=== PATIENT | male | born 1990 | race Caucasian/White ===

== ENCOUNTER 2017-01-16 22:10 | Emergency (ER) | payer OTHER ==
--- NOTE | 2017-01-16 22:53 | ED Physician Documentation ---
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- active duty Review of Systems Constitutional: reports: Reviewed and negative Cardiac: reports: Reviewed and negative Respiratory: reports: Reviewed and negative PD PAST MEDICAL HISTORY - Past Medical History Past Medical History: No - Past Surgical History Past Surgical History: No - Present Medications Home Medications: Ambulatory Orders Medication Instructions Recorded Confirmed No Known Home Medications [No 01/16/17 01/16/17 Known Home Medications] - Allergies Allergies/Adverse Reactions: Allergies Allergy/AdvReac Type Severity Reaction Status Date / Time No Known Drug Allergies Allergy Verified 01/16/17 22:25 - Social History Does the pt smoke?: No Smoking Status: Never smoker Does the pt drink ETOH?: Yes ETOH Use: Beer, Liquor Does the pt have substance abuse?: No - Immunizations Immunizations are current?: Yes - POLST Patient has POLST: No PD ED PE NORMAL - Vitals Vital signs reviewed: Yes - General General: Alert and oriented X 3, No acute distress - Extremities Extremities: Other (2cm lac anterior just above L ankle, intact motor function in foot. Good pulses/sensation.) - Neuro Neuro: Alert and oriented X 3, Normal speech - Psych Psych: Normal mood, Normal affect Results - Vitals Vitals: Vital Signs - 24 hr 01/16/17 22:25 Temperature 36.5 C Heart Rate 88 Respiratory 16 Rate Blood Pressure 129/85 H O2 Saturation 98 Oxygen O2 Source Room air Procedures - Laceration (location) L ankle Length in cm: 2 Wound type: Linear Neurovascular status: Sensory intact, Motor intact, Vascular intact Anesthesia: Marcaine 0.5% with epi Wound Preparation: Hibiclens, Irrigated copiously NS Skin layer closure: Nylon, Interrupted, Size #-0 - enter number (4-0), Sutures - enter # (7) Other: Tetanus UTD Complexity: Simple Departure - Departure Disposition: 01 Home, Self Care Clinical Impression: Laceration of left ankle Qualifiers: Encounter type: initial encounter Qualified Code(s): S91.012A - Laceration without foreign body, left ankle, initial encounter Condition: Good Record reviewed to determine appropriate education?: Yes Instructions: ED Laceration All Comments: Wash the wound briefly but in general keep it dry and covered. Come back for any signs of infection which would include: Redness, swelling, drainage, increased pain, or fevers. Followup with your doctor in14 days for suture removal. Your blood pressure was elevated today on check in to the emergency department. This does not mean that you have hypertension, it is a common phenomenon to check into the emergency department and have elevated blood pressure. I recommend that you see your primary care physician within the week to have it rechecked when you're feeling better. Forms: Activity restrictions
[2017-01-16 23:08] VITALS: BP 121/75
== END 2017-01-16 23:10 | disposition home or self-care (01) ==
LOC: ED 22:10
DX: S81.812A Laceration without foreign body, left lower leg, initial encounter (principal); W27.0XXA Contact with workbench tool, initial encounter; Y92.017 Garden or yard in single-family (private) house as the place of occurrence of the external cause; R03.0 Elevated blood-pressure reading, without diagnosis of hypertension
CPT/HCPCS: 12001; 99282; 99283

== ENCOUNTER 2017-03-13 12:48 | Outpatient (CLI) | payer OTHER ==
--- NOTE | 2017-03-13 14:36 | MRI Report ---
EXAM: LEFT ANKLE/HINDFOOT MRI WITHOUT CONTRAST EXAM DATE: 03/13/2017 02:13 PM. CLINICAL HISTORY: Anterior left ankle pain after hitting the ankle with a hatchet accidentally. Shakira rn for ligament or tendon injury. Decreased range of motion. COMPARISON: None. TECHNIQUE: Multiplanar, multisequence T1-weighted and fluid-sensitive sequences of the ankle/hindfoot without contrast. Other: None. FINDINGS: Bones: Minimal marrow edema at the navicular. No acute fracture or bone lesions. Articular Cartilage: Unremarkable. Ligaments: The anterior and posterior tibiofibular, anterior and posterior talofibular, and calcaneof ibular ligaments are intact. The deep and superficial deltoid and spring ligaments are intact. Anterior Tendons: There is moderate to high-grade partial tear within the tibialis anterior tendon. T he length of the tear is approximately 5 cm and extends from approximately 5 cm above the tibiotalar joint line to the tibiotalar joint line level. The extensor hallucis and extensor digitorum tendons a re intact. Medial Tendons: The tibialis posterior, flexor digitorum longus, and flexor hallucis longus tendons a re unremarkable. Lateral Tendons: The peroneus brevis and longus are unremarkable. Achilles Tendon: The Achilles tendon is unremarkable. Musculature: No edema or fatty atrophy. Other: No effusions. The contents of the sinus tarsi and tarsal tunnel are unremarkable. No plantar f asciitis. The subcutaneous tissues are unremarkable. IMPRESSION: 1. A moderate high-grade partial tear within the tibialis anterior tendon from approximately 5 cm abo ve the tibiotalar joint line to the tibiotalar joint line level. 2. Minimal marrow edema within the navicular which may represent bone contusion or stress reaction. 3. No ligament injury. [facility] MUSCULOSKELETAL RADIOLOGY SECTION Referring Provider Line: [phone] SITE ID: [id number]
== END 2017-03-13 12:49 | disposition home or self-care (01) ==
LOC: DI 12:48
PROVIDERS: ATTEND Registered Nurse Diabetes Educator
DX: S96.812A Strain of other specified muscles and tendons at ankle and foot level, left foot, initial encounter (principal)

== ENCOUNTER 2017-04-26 07:02 | Day surgery (SDC) | payer OTHER ==
[~2017-04-26 07:02] MED LIST: ACETAMINOPHEN 1,000 MG/100 ML 100 ML IV ONE; ceFAZolin 2 GM/50 ML 50 ML IV ONE
[2017-04-26] MEDS ORDERED: LACTATED RINGERS 1,000 ML IV ONE ×2 (07:33→13:29)
[2017-04-26] MEDS ORDERED: BUPIVACAINE 0.25% PF 30 ML VIAL SUBQ ONE ×2 (09:16)
[2017-04-26] MEDS ORDERED: ONDANSETRON 4 MG/2 ML VIAL IVP ONE (10:18)
[2017-04-26] MEDS ORDERED: PROPOFOL 200 MG/20 ML VIAL IVP ONE (10:18)
[2017-04-26] MEDS ORDERED: LIDOCAINE-MPF 2% 5 ML VIAL IM ONE (10:18)
[2017-04-26] MEDS ORDERED: KETOROLAC 30 MG/ML VIAL IVP ONE (10:18)
[2017-04-26] MEDS ORDERED: HYDROmorphone 1 MG/ML SYRINGE IVP ONE (10:18)
[2017-04-26] MEDS ORDERED: DEXAMETHASONE 4 MG/ML VIAL IVP ONE (10:18)
[2017-04-26] MEDS ORDERED: MIDAZOLAM 2 MG/2 ML VIAL IVP ONE (10:18)
[2017-04-26] MEDS ORDERED: fentaNYL 100 MCG/2 ML VIAL ONE (14:36)
--- NOTE | 2017-04-26 14:49 | XRAY Report ---
THREE-VIEW LEFT FOOT: 04/26/2017 CLINICAL INDICATION: Tendon repair. FINDINGS: Intraoperative AP, lateral, oblique views of the left foot were obtained. There is no sidney dence of acute fracture. A surgical instrument is seen directed at the medial cuneiform. IMPRESSION: INTRAOPERATIVE IMAGING OF THE LEFT FOOT. FLUOROSCOPY TIME: [address] Dooley; 5 spot images obtained. JOB #: [id number] EXT JOB #:[id number]
[2017-04-26] MEDS: oxyCODONE 5 MG TABLET ONE ×2 (15:13→15:45)
--- NOTE | 2017-04-26 15:14 | XRAY Report ---
THREE-VIEW LEFT FOOT: 04/26/2017 CLINICAL INDICATION: Postop. FINDINGS: Frontal, lateral, oblique views of the left foot demonstrate postoperative changes in the medial cuneiform, with a surgical retention button inferiorly. Cast material obscures fine osseous d etail. IMPRESSION: POSTOPERATIVE CHANGES IN THE MEDIAL FOOT. JOB #: [id number] EXT JOB #:[id number]
[2017-04-26] MEDS ORDERED: oxyCODONE 5 MG TABLET ONE (15:44)
[2017-04-26 16:40] VITALS: BP 142/84
--- NOTE | 2017-04-30 11:41 | OPERATIVE REPORT ---
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 OPERATION PERFORMED: Left tibialis anterior reconstruction with tibialis anterior allograft. PRIMARY SURGEON: Yue Dooley MD RESIDENTIAL SUPERVISOR SURGEON: Robbin Norris MD ANESTHESIA PROVIDER: Naila Plunkett MD CIRCULATING NURSE: José Orta RN STATION CAPTAIN 1. Jessica Cohn, LOSS PREVENTION OPERATIONS MANAGER 2. Marion Aldridge LOSS PREVENTION OPERATIONS MANAGER 3. Rae Garland RN, BSN ANESTHESIA: General via LMA. INTRAVENOUS FLUIDS: 1,000 mL lactated ringers. ANTIBIOTICS: Ancef 2 grams IV. ESTIMATED BLOOD LOSS: 25 mg. TOURNIQUET: To left thigh at 250 mmHg for 128 minutes. SPECIMENS 1. Culture swabs for aerobic culture. 2. Culture swabs for anaerobic culture. 3. Tissue for acid-fast bacteria. 4. Tissue for fungal culture. IMPLANTS 1. Arthrex EndoButton. 2. Arthrex 6.25 x 15 mm tenodesis screw. COMPLICATIONS: None. INDICATIONS FOR SURGERY: This is a 26-year-old male who in December of 2016 was utilizing a hatchet remove tree roots at his home, when the hatchet bounced off a root and struck him in the left anterior distal leg. He was seen in the emergency room, where the wound was sutured shut. He had persistent weakness in his tibialis anterior with inability to dorsiflex his foot after the injury, for which he had an MRI obtained by his primary care physician that showed a tibialis anterior tendon laceration with approximately 5 cm of retraction. The risks, benefits, indications, and expectations for surgery were discussed with the patient, to include, but not limited to risk of infection, bleeding, damage to neurovascular structures, wound complications, need for additional surgery, persistent or worsened pain, recurrent tendon tears or tendon rupture, decreased range of motion or stiffness, deep vein thrombosis, pulmonary embolism , loss of limb, and loss of life. All questions were answered, the patient elected to proceed with surgery, and informed consent was obtained. PROCEDURE: The patient was met in the preoperative hold area on the morning of surgery, where we confirmed that we had the correct patient, planned to do the correct procedure, and had the correct extremity which was the left lower extremity identified. Prior to the patient receiving any medications, the operative extremity was initialed by the surgeon. The patient was then brought back to the operating room in stable condition and placed supine on the operating room table. All bony prominences were well-padded, and sequential compression device was placed on the nonoperative leg. General anesthesia was induced without complication, and an LMA was placed. The left lower extremity was then prepped and draped in the usual sterile fashion. We held a surgical time-out, where we confirmed that we had the correct patient, planned to do the correct procedure, and had the correct extremity which was the left lower extremity identified. We also confirmed the patient received preoperative antibiotics, that all necessary gear was in the room and confirmed sterile, and that no members of the operative team had any concerns. We began by exsanguinating the left lower extremity and inflating the tourniquet to 250 mmHg. We then took the patient's traumatic horizontal laceration and reopened this, and then extended the medial portion of this distally to over the medial cuneiform, and then extended the lateral portion proximally over the tibialis anterior. After sharply incising the skin, we utilized cautery to obtain hemostasis through the subcuticular layer. We then identified the remnants of the tendon sheath over the tibialis anterior tendon and opened this as well as the extensor retinaculum both superior and inferior. We identified the area of the tendon, right at the level of the laceration, which appeared to be all scar tissue. The tibialis anterior distal to this also had a significant amount of scar tissue and degeneration in it; therefore, we sharply debrided this portion of the tendon out. Looking at the proximal stump, it was clear that there was additional abnormal fibrofatty tissue and not normal tendon. We continued to debride this back to healthy tendon, with a total of 8 cm of tendon debrided. There was still approximately 2 -3 cm distally attached to the medial cuneiform; however, with a large gap, the decision was made to interpose tibialis anterior allograft. The tibialis anterior allograft was weaved into the proximal aspect of the residual tendon utilizing a Pulvertaft weave, which was then sewn into place utilizing #2 Ethibond. Additionally, the very end of the graft had FiberLoop utilized on it, and then this FiberLoop, with a free needle, had the ends of it passed through the penobscot tendon and then tied as well. Distally a guide pin was placed into the medial cuneiform from dorsal to plantar. We then drilled over this utilizing a 6.5 mm drill for 2 cm after measuring the tendon to be 6mm diameter. We then whipstitched the distal end of the tibialis anterior graft after appropriate sizing it lengthwise. We then placed an button onto the distal aspect of the tibialis anterior allograft FiberWire, and then passed the button to the plantar surface of the medial cuneiform, and then toggled back and forth to draw the tendon down into the previously drilled hole. After this was appropriately snug, and the tibialis anterior tendon was appropriately tensioned with the foot in neutral dorsiflexion, we then passed the FiberWire suture through the tendon distally and then tied this. We obtained intraoperative fluoroscopy to confirm appropriate placement of the button. We then placed one limb of the suture through the 6.25 x 15 mm tenodesis screw and then placed the tenodesis screw into the predrilled hole in the medial cuneiform. We then tied the FiberWire suture over the top of this. We then took 2 cm of the penobscot distal tibialis anterior that still remained attached to the bone and did a [id number] tenodesis of that to the allograft. We then thoroughly irrigated the wound. We closed the superior retinaculum as well as the tibialis anterior tendon sheath over the graft. The distal extensor retinaculum was repaired to the degree that it could be; however, much of this was not of good quality and did not approximate over the graft. The tourniquet was deflated and hemostasis obtained. We then thoroughly irrigated the wound again. We then closed the skin with subcuticular 2-0 Vicryl and the skin with 3-0 nylon in a horizontal mattress fashion. We then injected 30 mL of 0.25% Marcaine without epinephrine about the incision for local analgesia. We then dressed the wounds with sterile Xeroform, plain gauze, and Webril. We then placed the patient into a bulky Solorzano splint with his foot in neutral dorsiflexion. The patient was awakened from general anesthesia without complication and taken to the PACU in stable condition. All sponge counts and needle counts were correct at the conclusion of the case. POSTOPERATIVE PLAN: The patient will remain in his splint for 2 weeks. I will see him back in 2 weeks, at which time sutures will be removed, and he will transition to a cast for a total of 6 weeks of immobilization. Report edited and signed 05/01/2017 by Yue Dooley MD. JOB #: [id number] EXT JOB #:[id number] MTDD
--- NOTE | 2017-05-01 09:51 | XRAY Report ---
Fluoroscopy time only, no images submitted for interpretation. Fluoroscopy time 0 minutes, 7 seconds. MTDD
== END 2017-04-26 07:03 | disposition home or self-care (01) ==
LOC: SDS 07:02
PROVIDERS: ATTEND Orthopaedic Surgery
PROC: 0LQP0ZZ Repair Left Lower Leg Tendon, Open Approach (ICD-10-PCS; principal; 2017-04-26 08:30)
DX: S86.222A Laceration of muscle(s) and tendon(s) of anterior muscle group at lower leg level, left leg, initial encounter (principal)
CPT/HCPCS: 27659; 73630; 87205; A9270; C1713; C1762; J0131; J0690; J1170; J7120

== ENCOUNTER 2018-01-29 08:41 | Outpatient (CLI) | payer OTHER ==
[~2018-01-29 08:41] MED LIST changes: -ACETAMINOPHEN 1,000 MG/100 ML 100 ML IV ONE; +GADOBUTROL 15 MMOL/15 ML VIAL ONE; -ceFAZolin 2 GM/50 ML 50 ML IV ONE
[2018-01-29] MEDS ORDERED: GADOBUTROL 15 MMOL/15 ML VIAL IVP ONE (09:50)
--- NOTE | 2018-01-29 15:13 | MRI Report ---
EXAM: RIGHT FEMUR/THIGH MRI WITHOUT AND WITH CONTRAST EXAM DATE: 01/29/2018 10:07 AM. CLINICAL HISTORY: Pain in right knee. COMPARISON: None. TECHNIQUE: Multiplanar, multisequence T1-weighted and fluid-sensitive sequences of the thigh before a nd after administration of intravenous contrast. IV contrast: 12 mL Gadavist. Other: None. FINDINGS: Bones: No fractures or subluxations. No marrow edema or abnormal enhancement. No bone lesions. Joint Spaces: Minimal knee joint effusion without enhancement. Evaluation of the internal structures of the knee limited due to large field of view sequences. No gross meniscal, cruciate, or collateral ligament abnormality visualized. Tendons: Quadriceps tendon normal in morphology and signal intensity. Musculature: No edema, enhancement, or fatty atrophy. Other: The visualized sciatic and femoral nerves are unremarkable. The subcutaneous tissues are unrem arkable. No abscess or cellulitis. IMPRESSION: 1. Normal MRI appearance of the quadriceps tendon. 2. Minimal knee joint effusion, nonspecific. 3. No focal muscle or subcutaneous soft tissue abnormality. RADIA MUSCULOSKELETAL RADIOLOGY SECTION Referring Provider Line: [phone] SITE ID: [id number]
== END 2018-01-29 08:42 | disposition home or self-care (01) ==
LOC: DI 08:41
PROVIDERS: ATTEND Orthopaedic Surgery
DX: M25.461 Effusion, right knee (principal)
CPT/HCPCS: 73720; A9585